=== PATIENT | female | born 1955 | race Caucasian/White ===

== ENCOUNTER 2016-09-25 20:20 | Emergency (ER) | payer OTHER ==
[2016-09-25 20:33] VITALS: BP 109/70
[2016-09-25] MEDS ORDERED: Sulfamethox/Trimethoprim DS 800/160* TAB PO ONE (21:11)
[2016-09-25] MEDS ORDERED: Phenazopyridine TAB* 100 MG PO ONE (21:12)
--- NOTE | 2016-09-25 21:41 | UC ---
Complaint Female HPI - HPI Summary HPI Summary: ONSET OF DYSURIA, URINARY FREQUENCY AND URGENCY TODAY. NO FEVER OR NAUSEA. HAS SOME BACK PAIN BUT THINKS THIS IS MUSCULAR AND IS ACTUALLY IMPROVED. GETS UTI SEVERAL TIMES PER YEAR. HAS BEEN WORKED UP BY UROLOGY IN THE PAST. IS VISITING FROM [place] TO PARTICIPATE IN A CONFERENCE AT [place]. - History Of Current Complaint Chief Complaint: UCGU Stated Complaint: BURNING URINATION Time Seen by Provider: 09/25/16 20:38 Hx Obtained From: Patient Onset/Duration: Sudden Onset, Lasting Hours, Still Present Timing: Constant Severity Initially: Moderate Severity Currently: Moderate Pain Intensity: 3 Pain Scale Used: 0-10 Numeric Character: Burning Aggravating Factor(s): Urination Alleviating Factor(s): Nothing Associated Signs And Symptoms: Positive: Back Pain. Negative: Vaginal Discharge , Nausea, Vomiting(# Of Episodes =), Genital Swelling, Genital Blisters - Allergies/Home Medications Allergies/Adverse Reactions: Allergies Allergy/AdvReac Type Severity Reaction Status Date / Time No Known Allergies Allergy Verified 09/25/16 20:32 PMH/Surg Hx/FS Hx/Imm Hx Previously Healthy: Yes - Surgical History Surgical History: None - Family History Known Family History: Positive: Hypertension - Social History Alcohol Use: Occasionally Substance Use Type: None Smoking Status (MU): Never Smoked Tobacco Review of Systems Constitutional: Negative Skin: Negative Respiratory: Negative Cardiovascular: Negative Gastrointestinal: Abdominal Pain Genitourinary: Dysuria, Frequency, Urgency All Other Systems Reviewed And Are Negative: Yes Physical Exam Triage Information Reviewed: Yes Appearance: Well-Appearing, No Pain Distress, Well-Nourished Vital Signs: Initial Vital Signs Temp 97.7 F 09/25/16 20:32 Pulse 79 09/25/16 20:32 Resp 16 09/25/16 20:32 BP 109/70 09/25/16 20:32 Pulse Ox 100 09/25/16 20:32 Vital Signs Reviewed: Yes Eyes: Positive: Conjunctiva Clear ENT: Positive: Hearing grossly normal Neck: Positive: Supple Respiratory: Positive: No respiratory distress, No accessory muscle use Cardiovascular: Positive: Pulses Normal Abdomen Description: Positive: Soft, Other: - MILD SUPRAPUBIC TENDERNESS. Negative: CVA Tenderness (R), CVA Tenderness (L), Distended, Guarding Bowel Sounds: Positive: Present Musculoskeletal: Positive: No Edema Neurological: Positive: Alert Psychological: Positive: Age Appropriate Behavior Skin: Negative: rashes Diagnostics - Laboratory Diagnostic Studies Completed/Ordered: URINE DIP SP. GR. 1.005, 2+ LEUKS Complaint Female Dx - Differential Dx/Diagnosis Provider Diagnoses: UTI Discharge - Discharge Plan Condition: Stable Disposition: HOME Prescriptions: Phenazopyridine TAB* [Pyridium TAB*] 200 mg PO TID #6 tab Sulfamethox/Trimethoprim DS* [Bactrim DS 800/160 TAB*] 1 tab PO BID #8 tab Patient Education Materials: Urinary Tract Infection in Women (ED) Additional Instructions: SEEK FOLLOW-UP WITH YOUR PCP IN [place] IF NEEDED. STAY WELL HYDRATED.
== END 2016-09-25 21:35 | disposition home or self-care (01) ==
LOC: UCEAST 20:20
DX: N39.0 Urinary tract infection, site not specified (principal)
CPT/HCPCS: 81003; 87086; 99203; A9270-GY; G0463